=== PATIENT | female | born 1985 | race Caucasian/White ===

== ENCOUNTER 2016-09-15 10:58 | Emergency (ER) | payer OTHER ==
[~2016-09-15] VITALS: Ht 167.6 cm; Wt 86.2 kg
[~2016-09-15 10:58] MED LIST: FLEXERIL10 MG PO; MOTRIN 600 MG600 MG PO; MOTRIN800 MG PO; PERCOCET 325 MG1 TA2 PO
[2016-09-15 11:06] VITALS: BP 108/75
--- NOTE | 2016-09-15 12:08 | ED GENERAL ADULT ---
History of Present Illness General Chief Complaint: Upper Respiratory Sx/Fever Stated Complaint: COUGH X 1WEEK Source: patient Exam Limitations: no limitations Vital Signs & Intake/Output Vital Signs & Intake/Output Vital Signs Date Time Temp Pulse Resp B/P B/P Pulse O2 O2 Flow FiO2 Mean Ox Delivery Rate 09/15 1310 100 / 1257 100 09/15 1247 100 / 1106 97.0 100 16 108/75 97 Room Air ED Intake and Output 09/16 0000 09/15 1200 Intake Total Output Total Balance Patient 190 lb Weight Weight Reported by Patient Measurement Method Allergies Coded Allergies: NO KNOWN ALLERGIES (03/16/12) Reconcile Medications Albuterol Sulfate (Proventil Hfa) 90 MCG HFA.AER.AD 2 PUF INH Q4 PRN shortness of breath Triage Note: PT HAS COUGH AND SORE THROAT WITH ACID REFLUX FOR THE PAST WEEK. PT STATES SHE IS COUGHING UP YELLOW/GREEN SPUTUM. Triage Nurses Notes Reviewed? yes : No Patient currently breastfeeds: No HPI: 31-year-old otherwise healthy female presenting with cough 1 week. Patient states that she initially began with a sore throat that lasted about 3 days and then self resolved. Cough developed subsequent to resolution of sore throat. For the most part cough has been nonproductive, does report occasional production of white/clear sputum. Endorses mild chest tightness, denies chest pain or shortness of breath. Denies fevers or sick contacts. Has been trying DayQuil without relief. (ALISON FERRIS,JEFF) Past History Travel History Traveled to [place] past 21 day No Medical History Any Pertinent Medical History? none Neurological: NONE EENT: NONE Cardiovascular: NONE Respiratory: NONE Gastrointestinal: NONE Hepatic: NONE Renal: NONE Musculoskeletal: NONE Psychiatric: NONE Endocrine: NONE Blood Disorders: NONE Cancer(s): NONE CARDER BLANKETS/Reproductive: NONE Surgical History Surgical History: non-contributory Psychosocial History What is your primary language Tajik Tobacco Use: Never used ETOH Use: occasional use Illicit Drug Use: denies illicit drug use Family History Hx Contributory? No (ALISON FERRIS,JEFF) Review of Systems Review of Systems Constitutional: Denies: chills, fever. EENTM: Reports: throat pain. Denies: ear pain. Respiratory: Reports: cough, sputum production. Denies: wheezing. Cardiovascular: Denies: chest pain, palpitations, syncope. GI: Reports: no symptoms. Genitourinary: Reports: no symptoms. Musculoskeletal: Reports: no symptoms. Skin: Reports: no symptoms. Neurological/Psychological: Reports: no symptoms. (ALISON FERRIS,JEFF) Physical Exam Physical Exam General Appearance: well developed/nourished, no apparent distress, comfortable Head: atraumatic Ears, Nose, Throat: normal ENT inspection Respiratory: chest non-tender, diffuse wheezing throughout bilateral lung clemente , no rhonchi or rales Cardiovascular: regular rate/rhythm, normal peripheral pulses Neurologic/Psych: awake, alert, oriented x 3 Skin: intact, normal color, warm/dry Core Measures ACS in differential dx? No CVA/TIA Diagnosis: No Severe Sepsis Present: No Septic Shock Present: No (JEFF ROSAS PA-C) Progress Differential Diagnoses I considered the following diagnoses in my evaluation of the patient: [URI versus bronchitis versus pneumonia active airway] Plan of Care: Orders Procedure Date/time Status XRY-CHEST XRAY, PA AND LATERAL 09/15 1208 Active Current Medications Sig/[place] Start time Last Medication Dose Stop Time Status Admin Albuterol Sulfate 3 ML ONCE ONE 09/15 1215 UNVr (Proventil) 09/15 1216 Albuterol Sulfate 3 ML ONCE ONE 09/15 1215 UNVr (Proventil) 09/15 1216 Albuterol Sulfate 3 ML ONCE ONE 09/15 1215 UNVr (Proventil) 09/15 1216 Prednisone 60 MG ONCE ONE 09/15 1215 UNVr 09/15 1216 Chest x-ray negative for pneumonia. Patient with good improvement and chest tightness after albuterol nebs. Patient instructed to use albuterol inhaler every 4-6 hours as needed for chest tightness or shortness of breath. Will follow up with her primary care provider. (JEFF ROSAS PA-C) Initial ED EKG: none (JEFF ROSAS PA-C) Departure Departure Disposition: HOME OR SELF CARE Condition: Stable Clinical Impression Primary Impression: URI (upper respiratory infection) Referrals: ANNELISE HECTOR MD (PCP/Family) Additional Instructions: Used 2 puffs of albuterol every 4-6 hours as needed for shortness of breath or chest tightness. Follow-up with her primary care provider for reevaluation. Return to the ED for any new or worsening symptoms. Departure Forms: Customer Survey General Discharge Information Prescriptions: Current Visit Scripts Albuterol Sulfate (Proventil Hfa) 2 PUF INH Q4 PRN shortness of breath #1 INHAL (ALISON FERRIS,JEFF) PA/ZUMBA INSTRUCTOR Co-Sign Statement Statement: ED Attending supervision documentation- [] I saw and evaluated the patient. I have also reviewed all the pertinent lab results and diagnostic results. I agree with the findings and the plan of care as documented in the PA's/ZUMBA INSTRUCTOR's documentation. [X] I have reviewed the ED Record and agree with the PA's/ZUMBA INSTRUCTOR's documentation. [] Additions or exceptions (if any) to the PAs/ZUMBA INSTRUCTOR's note and plan are summarized below: [] (AVNI ROSAS DO) Critical Care Note Critical Care Note Critical Care Time: non-applicable (JEFF ROSAS PA-C)
--- NOTE | 2016-09-15 12:54 | RADIOLOGY REPORT ---
EXAMINATION: XR CHEST CLINICAL INFORMATION: Cough, question pneumonia. COMPARISON: None TECHNIQUE: 2 views of the chest were obtained. FINDINGS: The cardiomediastinal silhouette is unremarkable. The lungs and pleural spaces appear clear without evidence of congestion, consolidation, or significant appearing effusion or atelectasis. There is no evidence of pneumothorax or pulmonary edema. Included osseous structures appear largely unremarkable. IMPRESSION: Unremarkable examination.
[2016-09-15] MEDS ORDERED: PROVENTIL HFA6.7 GM INH (13:18)
== END 2016-09-15 13:25 ==
LOC: ERH 10:58
DX: J06.9 Acute upper respiratory infection, unspecified (principal); R07.89 Other chest pain
CPT/HCPCS: 1263